=== PATIENT | male | born 1950 | race Caucasian/White ===

== ENCOUNTER → 2017-02-08 | Outpatient (CLI) | payer MEDICARE, OTHER ==
[2014-01-07 16:20] VITALS: BP 129/79
[~2017-02-08] MED LIST: BACITRACIN OPH3.5 GM OP; CYMBALTA60 M1 PO; MUCINEX 60600 MG/TA1 PO; OXYCODONE5 M1 PO
== END ==
LOC: RAD 11:13
DX: R91.8 Other nonspecific abnormal finding of lung field (principal); M79.5 Residual foreign body in soft tissue

== ENCOUNTER 2017-02-26 22:15 | Emergency (ER) | payer MEDICARE ==
[~2017-02-26] VITALS: Ht 170.2 cm; Wt 90.9 kg
[2017-02-26] MEDS ORDERED: NORCO 7.5-3251 EACH PO (22:53)
[2017-02-26] MEDS ORDERED: CYMBALTA60 M1 PO (22:54)
[2017-02-26] MEDS ORDERED: IPRATROPIUM BROM3 M1 IH (22:54)
[2017-02-26] MEDS ORDERED: SYMBICORT1 AE3 IH (22:55)
[2017-02-26 23:12] LABS: HEMATOCRIT 42.5 % (42.0-52.0); HEMOGLOBIN 14.1 g/dL (13.5-18.0); MEAN CELL VOLUME 98 fl (78-100); MEAN CORPUSCULAR HEMOGLOBIN 32 pg (27-31); MEAN CORPUSCULAR HGB CONC 33 g/dL (33-37); MEAN PLATELET VOLUME 9.5 fl (7.4-10.4); PLATELET COUNT 202 K/mm3 (130-400); RED BLOOD COUNT 4.35 M/mm3 (4.20-5.60); RED CELL DISTRIBUTION WIDTH 13.5 % (11.5-14.5); WHITE BLOOD COUNT 8.8 K/mm3 (4.8-10.8)
[2017-02-26 23:16] LABS: ALBUMIN 3.9 g/dL (3.5-5.0); BUN/CREATININE RATIO 21.2 (6.0-26.0); CALCIUM 9.2 mg/dL (8.4-10.2); TOTAL BILIRUBIN 0.4 mg/dL (0.2-1.3)
[2017-02-26 23:27] LABS: TROPONIN-I < 0.03 ng/mL (0.00-0.06)
[2017-02-26 23:28] LABS: LYMPHOCYTE 30 % (20-51); MONOCYTE 5 % (3-10); NEUTROPHILS 57 % (42-75)
[2017-02-26] MEDS ORDERED: PREDNISONE20 M1 PO (23:48)
[2017-02-26] MEDS ORDERED: ZITHROMAX 250M250 MG PO (23:48)
[2017-02-26 23:55] VITALS: BP 164/87
== END 2017-02-26 23:55 | disposition home or self-care (01) ==
LOC: ED 22:15
PROVIDERS: Family Medicine
DX: J44.1 Chronic obstructive pulmonary disease with (acute) exacerbation (principal); F17.200 Nicotine dependence, unspecified, uncomplicated; F32.9 Major depressive disorder, single episode, unspecified

== ENCOUNTER 2017-04-30 21:38 | Emergency (ER) | payer MEDICARE, OTHER ==
[~2017-04-30] VITALS: Ht 17.8 cm; Wt 90.9 kg
[~2017-04-30 21:38] MED LIST changes: +IPRATROPIUM BROM3 M1 IH; +NORCO 7.5-3251 EACH PO; +PREDNISONE20 M1 PO; +SYMBICORT1 AE3 IH; +ZITHROMAX 250M250 MG PO
[2017-04-30] MEDS ORDERED: RT SPIRIVA INH18 MCG IH (21:46)
[2017-04-30] MEDS ORDERED: RT ALBUTEROL CC18 GM IH (21:52)
[2017-04-30 22:23] LABS: BASO # 0.1 (0.02-0.10); HEMATOCRIT 43.4 % (42.0-52.0); HEMOGLOBIN 14.2 g/dL (13.5-18.0); LYMPH# 1.7 (1.50-4.00); MEAN CELL VOLUME 98 fl (78-100); MEAN CORPUSCULAR HEMOGLOBIN 32 pg (27-31); MEAN CORPUSCULAR HGB CONC 33 g/dL (33-37); MEAN PLATELET VOLUME 9.2 fl (7.4-10.4); MONO # 1.1 (0.20-0.80); NEU # 6.7 (1.40-6.50); PLATELET COUNT 206 K/mm3 (130-400); RED BLOOD COUNT 4.43 M/mm3 (4.20-5.60); RED CELL DISTRIBUTION WIDTH 13.9 % (11.5-14.5); WHITE BLOOD COUNT 10.3 K/mm3 (4.8-10.8)
[2017-04-30 22:24] LABS: EOS # 0.7 (0.04-0.40); EOS % 7.1 % (0.0-4.0)
[2017-04-30 22:36] LABS: ALBUMIN 4.2 g/dL (3.5-5.0); BUN/CREATININE RATIO 12.4 (6.0-26.0); CALCIUM 9.2 mg/dL (8.4-10.2); POTASSIUM 4.1 mmol/L (3.6-5.0); TOTAL BILIRUBIN 0.8 mg/dL (0.2-1.3); TOTAL PROTEIN 7.7 g/dL (6.3-8.2)
[2017-05-01 01:56] LABS: TROPONIN-I < 0.03 ng/mL (0.00-0.06)
[2017-05-01 02:05] LABS: D-DIMER 0.69 mg/L FEU (0.15-0.50)
[2017-05-01 02:14] VITALS: BP 176/85
[2017-05-02] MEDS ORDERED: DOXYCYCLINE HYC50 M1 PO (08:59)
[2017-05-02] MEDS ORDERED: PREDNISONE10 MG PO (09:03)
== END 2017-05-01 02:14 | disposition other institution (70) ==
LOC: ED 21:38
PROVIDERS: Family Medicine
DX: J44.1 Chronic obstructive pulmonary disease with (acute) exacerbation (principal); Z89.512 Acquired absence of left leg below knee; F17.210 Nicotine dependence, cigarettes, uncomplicated; R06.4 Hyperventilation; R45.1 Restlessness and agitation; F41.9 Anxiety disorder, unspecified
CPT/HCPCS: J2060; J2930

== ENCOUNTER 2017-05-05 22:44 | Emergency (ER) | payer MEDICARE ==
[~2017-05-05] VITALS: Ht 170.2 cm; Wt 88.6 kg
[~2017-05-05 22:44] MED LIST changes: +DOXYCYCLINE HYC50 M1 PO; +PREDNISONE10 MG PO; +RT ALBUTEROL CC18 GM IH; +RT SPIRIVA INH18 MCG IH
[2017-05-05 23:51] LABS: HEMATOCRIT 43.8 % (42.0-52.0); HEMOGLOBIN 14.3 g/dL (13.5-18.0); MEAN CELL VOLUME 98 fl (78-100); MEAN CORPUSCULAR HEMOGLOBIN 32 pg (27-31); MEAN CORPUSCULAR HGB CONC 33 g/dL (33-37); MEAN PLATELET VOLUME 9.4 fl (7.4-10.4); PLATELET COUNT 216 K/mm3 (130-400); RED BLOOD COUNT 4.46 M/mm3 (4.20-5.60); RED CELL DISTRIBUTION WIDTH 14.1 % (11.5-14.5); WHITE BLOOD COUNT 9.4 K/mm3 (4.8-10.8)
[2017-05-06 00:04] LABS: BUN/CREATININE RATIO 31.5 (6.0-26.0); CALCIUM 9.2 mg/dL (8.4-10.2); POTASSIUM 4.8 mmol/L (3.6-5.0); TOTAL BILIRUBIN 0.5 mg/dL (0.2-1.3); TOTAL PROTEIN 6.9 g/dL (6.3-8.2)
[2017-05-06 00:07] LABS: URINE WBC 0 /hpf (0-3)
[2017-05-06 00:12] LABS: CKMB ISOENZYME 1.8 ng/mL (0.6-3.5)
[2017-05-06 00:15] LABS: D-DIMER 0.68 mg/L FEU (0.15-0.50); TROPONIN-I < 0.03 ng/mL (0.00-0.06)
[2017-05-06 00:57] LABS: LYMPHOCYTE 4 % (20-51); MONOCYTE 6 % (3-10); NEUTROPHILS 90 % (42-75)
[2017-05-06 00:57] LABS: URINE COLOR YELLOW
[2017-05-06 00:58] LABS: URINE APPEARANCE HAZY; URINE BILIRUBIN NEGATIVE (NEGATIVE); URINE BLOOD NEGATIVE (NEGATIVE); URINE GLUCOSE NEGATIVE (NEGATIVE); URINE KETONE NEGATIVE (NEGATIVE); URINE LEUKOCYTE ESTERASE NEGATIVE (NEGATIVE); URINE MUCUS PRESENT (NOT PRESENT); URINE NITRATE NEGATIVE (NEGATIVE); URINE PROTEIN(semi-quant) NEGATIVE (NEGATIVE); URINE UROBILINOGEN NORMAL (NORMAL)
[2017-05-06 02:32] VITALS: BP 141/61
== END 2017-05-06 02:32 | disposition home or self-care (01) ==
LOC: ED 22:44
PROVIDERS: Nurse Practitioner Family
DX: J44.1 Chronic obstructive pulmonary disease with (acute) exacerbation (principal); Z89.512 Acquired absence of left leg below knee; Z87.891 Personal history of nicotine dependence

== ENCOUNTER 2017-05-06 05:15 | Inpatient (IN) | payer MEDICARE, OTHER ==
[~2017-05-06] VITALS: Ht 170.2 cm; Wt 90.7 kg
[2017-05-06 06:34] VITALS: BP 114/67
[2017-05-06 06:39] VITALS: BP 114/67
--- NOTE | 2017-05-06 07:00 | NUR ---
REPORT RECEIVED FROM CRISTO GREGORY.
--- NOTE | 2017-05-06 08:39 | NUR ---
PERSISTANT COUGHING SPELL. BECOMES SHORT OF BREATH, WHICH IN TURN INCREASES HIS ANXIETY. HE USES CALL LIGHT FOR ASSISTANCE. COUGH HAS SCANT AMOUNT OF WHITE AND PALE YELLOW SPUTUM. EDUCATION PROVIDED WITH VERBALIZATION AND DEMONSTRATION FOR BREATHING TECHNIQUES AND POSTURING TO EXPAND LUNGS. PATIENT DOES DEMONSTRATE ABILITY TO TAKE CLEASING BREATH IN THROUGH NOSE AND OUT THROUGH MOUTH TO SLOW HIS RESP RATE AND DECREASE ANXIETY. TALK WITH SRINATH CADENA ABOUT ORDER FOR COUGH SUPPRESANT.
--- NOTE | 2017-05-06 08:54 | NUR ---
THONG CUELLAR OT WITH PATIENT.
[2017-05-06 11:12] VITALS: BP 129/75
[2017-05-06 14:48] VITALS: BP 142/74
[2017-05-06 17:45] VITALS: BP 153/75
--- NOTE | 2017-05-06 19:32 | NUR ---
REPORT PROVIDED TO KRYS GREGORY.
[2017-05-06 23:23] VITALS: BP 141/73
[2017-05-07 03:08] VITALS: BP 136/76
[2017-05-07 06:38] VITALS: BP 138/80
--- NOTE | 2017-05-07 09:00 | NUR ---
PT FOUND SITTING ON SIDE OF BED VISITING WITH A FRIEND. DOING RESEARCH ON A PORTABLE AIR MACHINE. TAKES MEDS WITHOUT DIFFICULTY. NO EDEMA NOTED, DENIES ANY PAIN. HAS LEFT BKA. DENIES ANY DIFFICULTY BREATHING AT THIS TIME, NO COUGHING WHEN I ENTERED PT'S ROOM. ON ROOM AIR. STATES HE WOULD LIKE HIS ANXIETY PILL WHEN HE CAN HAVE IT.
[2017-05-07 11:02] VITALS: BP 161/77
[2017-05-07 15:36] VITALS: BP 160/72
--- NOTE | 2017-05-07 18:10 | NUR ---
PT HAS HAD AN UNEVENTFUL DAY. NO CHANGES IN PREVIOUS ASSESSMENT. HAS HAD MULTIPLE VISITORS TODAY. DENIES ANY PAIN AT THIS TIME. 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 HE HAS ONLY HAD A FEW COUGHING FITS TODAY AND HAS NOT BECAME ANXIOUS STAYING ON THE [facility] SCHEDULE. WILL CONTINUE TO MONITOR.
[2017-05-07 18:28] VITALS: BP 137/66
--- NOTE | 2017-05-07 19:00 | NUR ---
Report received from Rosa Jordan RN
--- NOTE | 2017-05-07 19:35 | NUR ---
Resting sitting up in bed. Awake and a/o x 3. Bed alarm set. Visitor sitting in room. Pt Pleasant and talkative. Denies SOB, chest pain or nausea. Offered evening snack, pt declined. Pt ate a orange he already had in his room.
--- NOTE | 2017-05-07 21:00 | NUR ---
Resting in bed sitting up. Tolerated breathing treatment without difficulty. Sa02 93% on room air. Pulse 83, Resp 24.
--- NOTE | 2017-05-07 22:30 | NUR ---
Resting in bed, bed alarm set. Eyes closed, even respirations. Pt talking in his sleep.
--- NOTE | 2017-05-07 23:00 | NUR ---
Resting in bed, pt startles easily when a sleep. Once awake, becomes a/o x 3. Denies having any needs or concerns. BP 116/52, pulse 88, Respirations 24, Sa02 95% on room air.
[2017-05-07 23:10] VITALS: BP 116/52
--- NOTE | 2017-05-08 00:30 | NUR ---
[id number] Pt had been resting in bed, bed alarm set. Eyes closed, coughing on and off and talking in sleep. 0025 Pt awake, a/o x 3. Coughing up mucus. Stated he was having difficulty catching his breath. Sa02 94% on room air. Pulse 75, Respirations labored. Pt given tessalon pearles and ativan PO.
--- NOTE | 2017-05-08 01:45 | NUR ---
Pt sat up in bed, awake and a/o x 3, playing on game machine. Pt legs moving. Pt stated that is legs will just start cramping and spasming. Given norco 2 PO. Rated pain 5-6 out of 10.
--- NOTE | 2017-05-08 03:05 | NUR ---
Pt continues to be awake and a/o x 3 sitting up in bed. Bed alarm on. Given Tussinex PO per pt request. Lung sounds CTA in upper lobes. Lung sounds diminished in bases bilaterally. Sa02 95% on room air. Pulse 75, respirations 24, c/o of feeling slightly SOB. Pt used Inhalor 2 puffs.
[2017-05-08 03:15] VITALS: BP 156/75
[2017-05-08 06:31] VITALS: BP 172/70
--- NOTE | 2017-05-08 06:40 | NUR ---
Given nicotene gum per pt request. Pt given ativan PO. Pt stated he also needed nicotene patches. Pt drinking coffee and talking fast. Stated he had not slept for more than a hour and 1/2 at a time. Pt denies SOB, chest pain or leg pain.
--- NOTE | 2017-05-08 07:15 | NUR ---
Report given to Cristy Fiore RN
--- NOTE | 2017-05-08 08:06 | NUR ---
Pt states he did not sleep well d/t being jittery. Is dangling on side of bed eating breakfast. Denies c/o pain, nausea, or dyspnea. Overall, pt states he is breathing "easier". No needs at this time.
[2017-05-08 11:04] VITALS: BP 162/93
[2017-05-08 15:09] VITALS: BP 177/81
--- NOTE | 2017-05-08 15:10 | NUR ---
Dr. Estevez at bedside to discuss discharge, change in medications, and follow up appointments. Pt and spouse verbalize understanding. All questions answered. Will give 1700 medications and discharge home with family.
[2017-05-08] MEDS ORDERED: PREDNISONE20 M1 PO (15:33)
[2017-05-08] MEDS ORDERED: ATIVAN0.5 MG PO (15:33)
[2017-05-08] MEDS ORDERED: LEVOFLOXACIN750 MG PO (15:33)
--- NOTE | 2017-05-08 16:20 | NUR ---
Pt discharged in stable condition via wheelchair. Belongings packed by spouse. D/C instructions provided to pt and spouse. All questions regarding F/U appt and medication schedule answered to satisfaction.
== END 2017-05-08 16:20 | disposition home or self-care (01) | DRG 192 ==
LOC: MED/SURG 05:15
PROVIDERS: ADMIT Nurse Practitioner Family
DX: J44.0 Chronic obstructive pulmonary disease with (acute) lower respiratory infection (principal); F41.9 Anxiety disorder, unspecified; J20.9 Acute bronchitis, unspecified; F17.210 Nicotine dependence, cigarettes, uncomplicated; Z89.512 Acquired absence of left leg below knee
CPT/HCPCS: J1650; J2543; J2930; J7512

== ENCOUNTER 2017-09-05 23:11 | Observation (INO) | payer MEDICARE, OTHER ==
[~2017-09-05] VITALS: Ht 170.2 cm; Wt 91.7 kg
[~2017-09-05 23:11] MED LIST changes: +ATIVAN0.5 MG PO; +LEVOFLOXACIN750 MG PO
[2017-09-05 23:34] LABS: HEMOGLOBIN 14.6 g/dL (13.5-18.0); MEAN CELL VOLUME 98 fl (78-100); MEAN CORPUSCULAR HEMOGLOBIN 31 pg (27-31); MEAN CORPUSCULAR HGB CONC 32 g/dL (33-37); MEAN PLATELET VOLUME 9.5 fl (7.4-10.4); PLATELET COUNT 195 K/mm3 (130-400); RED BLOOD COUNT 4.72 M/mm3 (4.20-5.60); RED CELL DISTRIBUTION WIDTH 13.5 % (11.5-14.5); WHITE BLOOD COUNT 7.3 K/mm3 (4.8-10.8)
[2017-09-05 23:46] LABS: ALBUMIN 3.9 g/dL (3.5-5.0); CALCIUM 9.1 mg/dL (8.4-10.2); POTASSIUM 4.5 mmol/L (3.6-5.0); TOTAL BILIRUBIN 0.2 mg/dL (0.2-1.3); TOTAL PROTEIN 7.4 g/dL (6.3-8.2)
[2017-09-05 23:50] LABS: LYMPHOCYTE 28 % (20-51); MONOCYTE 9 % (3-10); NEUTROPHILS 58 % (42-75)
[2017-09-05 23:52] LABS: TROPONIN-I < 0.03 ng/mL (0.00-0.06)
[2017-09-05 23:56] LABS: CKMB ISOENZYME 2.2 ng/mL (0.6-3.5)
[2017-09-06] MEDS ORDERED: ANORO ELLIPTA1 POW IH (01:13)
[2017-09-06 01:56] VITALS: BP 179/84
[2017-09-06 02:53] VITALS: BP 154/89
[2017-09-06 06:31] VITALS: BP 168/70
[2017-09-06] MEDS ORDERED: DULOXETINE60 MG PO (09:02)
[2017-09-06] MEDS ORDERED: ACETAMINOPHEN-H1 TA2 PO (09:03)
[2017-09-08] MEDS ORDERED: ZITHROMAX500 M2 PO (10:52)
[2017-09-08] MEDS ORDERED: XANAX0.5 M1 PO (10:53)
[2017-09-08] MEDS ORDERED: PREDNISONE20 M1 PO (10:56)
== END 2017-09-06 09:25 | disposition other institution (70) ==
LOC: ED 23:11 → MED/SURG 09-06 00:55
PROVIDERS: ADMIT Nurse Practitioner Primary Care
DX: J44.1 Chronic obstructive pulmonary disease with (acute) exacerbation (principal); F41.9 Anxiety disorder, unspecified; Z89.512 Acquired absence of left leg below knee; F17.210 Nicotine dependence, cigarettes, uncomplicated; Z99.81 Dependence on supplemental oxygen
CPT/HCPCS: G0378; J0456; J2930; J7050

== ENCOUNTER 2018-10-12 10:43 | Emergency (ER) | payer MEDICARE, OTHER ==
[~2018-10-12] VITALS: Ht 170.2 cm; Wt 90.9 kg
[~2018-10-12 10:43] MED LIST changes: +ACETAMINOPHEN-H1 TA2 PO; +ANORO ELLIPTA1 POW IH; +DULOXETINE60 MG PO; +XANAX0.5 M1 PO; +ZITHROMAX500 M2 PO
[2018-10-12] MEDS ORDERED: AMOXICILLIN875 MG PO (11:07)
[2018-10-12 11:20] VITALS: BP 136/64
== END 2018-10-12 11:19 | disposition home or self-care (01) ==
LOC: ED 10:43
DX: H66.93 Otitis media, unspecified, bilateral (principal); J44.9 Chronic obstructive pulmonary disease, unspecified; F41.9 Anxiety disorder, unspecified; Z89.512 Acquired absence of left leg below knee
CPT/HCPCS: J1885

== ENCOUNTER 2021-03-05 04:31 | Emergency (ER) | payer MEDICARE ==
[~2021-03-05] VITALS: Ht 172.7 cm; Wt 90.9 kg
[~2021-03-05 04:31] MED LIST changes: +AMOXICILLIN875 MG PO
[2021-03-05] MEDS ORDERED: ALBUTEROL2.5 MG/3 M IH (06:05)
[2021-03-05] MEDS ORDERED: CYMBALTA60 M1 PO (06:06)
[2021-03-05] MEDS ORDERED: BEVESPI AEROS10.7 GM IH (06:06)
[2021-03-05 06:07] LABS: HEMATOCRIT 41.4 % (42.0-52.0); HEMOGLOBIN 13.3 g/dL (13.5-18.0); MEAN CELL VOLUME 97 fl (78-100); MEAN CORPUSCULAR HEMOGLOBIN 31 pg (27-31); MEAN CORPUSCULAR HGB CONC 32 g/dL (33-37); MEAN PLATELET VOLUME 9.4 fl (7.4-10.4); PLATELET COUNT 218 K/mm3 (130-400); RED BLOOD COUNT 4.28 M/mm3 (4.20-5.60); RED CELL DISTRIBUTION WIDTH 13.8 % (11.5-14.5); WHITE BLOOD COUNT 3.6 K/mm3 (4.8-10.8)
[2021-03-05] MEDS ORDERED: NEURONTIN300 M1 PO (06:07)
[2021-03-05] MEDS ORDERED: HYDROXYZINE HYD50 M1 PO (06:08)
[2021-03-05] MEDS ORDERED: NORCO 10-325 T1 EACH PO (06:08)
[2021-03-05] MEDS ORDERED: MINIPRESS1 M1 PO (06:09)
[2021-03-05 06:11] LABS: ALBUMIN 3.4 g/dL (3.4-4.8); POTASSIUM 4.2 mmol/L (3.5-5.1)
[2021-03-05 06:13] LABS: CALCIUM 8.7 mg/dL (8.3-10.5)
[2021-03-05 06:14] LABS: TOTAL PROTEIN 6.8 g/dL (6.2-8.1)
[2021-03-05 06:16] LABS: TOTAL BILIRUBIN 0.3 mg/dL (0.2-1.2)
[2021-03-05 06:22] LABS: LYMPHOCYTE 45 % (20-51); MONOCYTE 28 % (3-10); NEUTROPHILS 3 % (42-75)
[2021-03-05 06:23] LABS: POLYCHROMASIA 1+
[2021-03-05 09:14] VITALS: BP 159/89
== END 2021-03-05 08:40 | disposition short-term general hospital (02) ==
LOC: ED 04:31
PROVIDERS: Physician Assistant
DX: T78.2XXA Anaphylactic shock, unspecified, initial encounter (principal); J44.1 Chronic obstructive pulmonary disease with (acute) exacerbation; F17.210 Nicotine dependence, cigarettes, uncomplicated; Z20.822 Contact with and (suspected) exposure to COVID-19; Z79.899 Other long term (current) drug therapy
CPT/HCPCS: J0171; J1200; J2930; J3490; J7030

== ENCOUNTER 2021-06-17 09:07 | Emergency (ER) | payer MEDICARE ==
[~2021-06-17] VITALS: Ht 170.2 cm; Wt 86.4 kg
[~2021-06-17 09:07] MED LIST changes: +ALBUTEROL2.5 MG/3 M IH; +BEVESPI AEROS10.7 GM IH; +HYDROXYZINE HYD50 M1 PO; +MINIPRESS1 M1 PO; +NEURONTIN300 M1 PO; +NORCO 10-325 T1 EACH PO
[2021-06-17 09:58] LABS: ALBUMIN 3.8 g/dL (3.4-4.8)
[2021-06-17 09:59] LABS: HEMATOCRIT 41.9 % (42.0-52.0); HEMOGLOBIN 13.9 g/dL (13.5-18.0); MEAN CELL VOLUME 93 fl (78-100); MEAN CORPUSCULAR HEMOGLOBIN 31 pg (27-31); MEAN CORPUSCULAR HGB CONC 33 g/dL (33-37); MEAN PLATELET VOLUME 9.2 fl (7.4-10.4); PLATELET COUNT 234 K/mm3 (130-400); RED BLOOD COUNT 4.49 M/mm3 (4.20-5.60)
[2021-06-17 10:01] LABS: TOTAL PROTEIN 7.1 g/dL (6.2-8.1)
[2021-06-17 10:03] LABS: TOTAL BILIRUBIN 0.3 mg/dL (0.2-1.2)
[2021-06-17 11:08] LABS: LYMPHOCYTE 63 % (20-51); MONOCYTE 22 % (3-10); NEUTROPHILS 2 % (42-75)
[2021-06-17] MEDS ORDERED: LIDOCAINE HC20 MG/M1 MM (11:38)
[2021-06-17] MEDS ORDERED: AMOXICILLIN AND1 TA2 PO (11:38)
[2021-06-17 11:42] VITALS: BP 152/87
== END 2021-06-17 11:46 | disposition home or self-care (01) ==
LOC: ED 09:07
PROVIDERS: Physician Assistant
DX: C95.90 Leukemia, unspecified not having achieved remission (principal); J32.9 Chronic sinusitis, unspecified; K14.0 Glossitis; F17.210 Nicotine dependence, cigarettes, uncomplicated; Z20.822 Contact with and (suspected) exposure to COVID-19
CPT/HCPCS: Q9967

== ENCOUNTER 2021-09-04 18:47 | Emergency (ER) | payer MEDICARE ==
[~2021-09-04] VITALS: Ht 170.2 cm; Wt 86.4 kg
[~2021-09-04 18:47] MED LIST changes: +AMOXICILLIN AND1 TA2 PO; +LIDOCAINE HC20 MG/M1 MM
[2021-09-04] MEDS ORDERED: LEVOFLOXACIN500 M1 PO (19:04)
[2021-09-04] MEDS ORDERED: BACTRIM DS TAB1 EACH PO (19:05)
[2021-09-04] MEDS ORDERED: CEPHALEXIN500 M1 PO (19:07)
[2021-09-04] MEDS ORDERED: VIBRAMYCIN HYC100 MG PO (19:08)
[2021-09-04] MEDS ORDERED: FLUTICASONE P15.8 ML NS (19:09)
[2021-09-04 19:25] LABS: HEMATOCRIT 43.4 % (42.0-52.0); MEAN CELL VOLUME 96 fl (78-100); MEAN CORPUSCULAR HEMOGLOBIN 31 pg (27-31); MEAN CORPUSCULAR HGB CONC 32 g/dL (33-37); MEAN PLATELET VOLUME 8.8 fl (7.4-10.4); PLATELET COUNT 218 K/mm3 (130-400); RED BLOOD COUNT 4.53 M/mm3 (4.20-5.60); RED CELL DISTRIBUTION WIDTH 13.5 % (11.5-14.5)
[2021-09-04 19:30] LABS: WHITE BLOOD COUNT 1.9 K/mm3 (4.8-10.8)
[2021-09-04 19:34] LABS: ALBUMIN 3.8 g/dL (3.4-4.8)
[2021-09-04 19:36] LABS: CALCIUM 9.3 mg/dL (8.3-10.5); POTASSIUM 4.8 mmol/L (3.5-5.1); SODIUM 141 mmol/L (136-145)
[2021-09-04 19:37] LABS: TOTAL PROTEIN 7.2 g/dL (6.2-8.1)
[2021-09-04 19:38] LABS: CARBON DIOXIDE 25 mmol/L (23-31); GLUCOSE 108 mg/dL (75-110)
[2021-09-04 19:40] LABS: TOTAL BILIRUBIN 0.2 mg/dL (0.2-1.2)
[2021-09-04 19:43] LABS: ALT/SGPT 13 U/L (0-55)
[2021-09-04 19:44] LABS: AST-SGOT 20 U/L (5-34)
[2021-09-04 19:54] LABS: TROPONIN-I < 0.030 ng/mL (<0.030)
[2021-09-04 19:55] LABS: D-DIMER 0.82 mg/L FEU (0.15-0.50); LYMPHOCYTE 32 % (20-51); MONOCYTE 36 % (3-10); NEUTROPHILS 24 % (42-75)
[2021-09-04] MEDS ORDERED: ATROVENT I0.2 MG/1 M IH (22:05)
[2021-09-04] MEDS ORDERED: PREDNISONE20 M1 PO (22:05)
[2021-09-04 22:15] VITALS: BP 148/68
== END 2021-09-04 22:15 | disposition home or self-care (01) ==
LOC: ED 18:47
PROVIDERS: Family Medicine
DX: J44.1 Chronic obstructive pulmonary disease with (acute) exacerbation (principal); D70.9 Neutropenia, unspecified; F17.290 Nicotine dependence, other tobacco product, uncomplicated
CPT/HCPCS: J2930; Q9967